=== PATIENT | female | born 2000 | race African-American/Black ===

== ENCOUNTER 2020-07-28 11:16 | Emergency (ER) | payer OTHER ==
[~2020-07-28] VITALS: Ht 165.1 cm; Wt 68.2 kg
[2020-07-28] MEDS ORDERED: LIDOCAINE/PF 1% 2 ML VIAL IM ONE (11:45)
[2020-07-28] MEDS ORDERED: AZITHROMYCIN 500 MG TABLET PO ONE (11:45)
[2020-07-28] MEDS ORDERED: CefTRIAXone SODIUM 1 GM/VIAL IM ONE (11:45)
[2020-07-28 11:49] VITALS: BP 120/60
== END 2020-07-28 12:30 | disposition home or self-care (01) ==
LOC: EMS 11:19
DX: A64 Unspecified sexually transmitted disease (principal)
CPT/HCPCS: 87491; 87591; 96372; 99283; A9575; J0696; J3490

== ENCOUNTER 2020-11-20 12:03 | Emergency (ER) | payer OTHER ==
[~2020-11-20] VITALS: Ht 165.1 cm; Wt 62.0 kg
[2020-11-20 12:04] VITALS: BP 108/56
== END 2020-11-20 13:05 | disposition left against medical advice (07) ==
LOC: EMS 12:19
DX: A64 Unspecified sexually transmitted disease (principal); Z53.21 Procedure and treatment not carried out due to patient leaving prior to being seen by health care provider

== ENCOUNTER 2023-03-12 10:57 | Emergency (ER) | payer OTHER ==
[~2023-03-12] VITALS: Ht 165.1 cm; Wt 61.4 kg
[2023-03-12 11:00] VITALS: TEMP 98.6
[2023-03-12 11:38] LABS: APPEARANCE,URINE CLEAR (CLEAR); BILIRUBIN,URINE NEGATIVE (NEGATIVE); COLOR,URINE LIGHT YELLOW (YELLOW); GLUCOSE, URINE (UA) NEGATIVE (NEGATIVE); KETONES,URINE NEGATIVE (NEGATIVE); LEUKOCYTE ESTERASE ,URINE NEGATIVE (NEGATIVE); NITRATE,URINE NEGATIVE (NEGATIVE); OCCULT BLOOD,URINE NEGATIVE (NEGATIVE); PH,URINE 5.5 (5.0-8.0); PROTEIN,URINE NEGATIVE (NEGATIVE); SPECIFIC GRAVITIY, URINE 1.029 (1.003-1.030); UROBILINOGEN,URINE <=1.0 mg/dL (<=1.0)
[2023-03-12] MEDS ORDERED: AZITHROMYCIN 500 MG TABLET PO ONE (13:30)
[2023-03-12] MEDS ORDERED: CefTRIAXone SODIUM 1 GM/VIAL IM ONE ×2 (13:30→13:45)
[2023-03-12] MEDS ORDERED: LIDOCAINE/PF 1% 2 ML VIAL IM ONE (13:45)
[2023-03-12 13:54] VITALS: BP 102/66; PULSE 65; RESP 16
== END 2023-03-12 13:55 | disposition home or self-care (01) ==
LOC: EMS 11:23
DX: Z20.2 Contact with and (suspected) exposure to infections with a predominantly sexual mode of transmission (principal)
CPT/HCPCS: 99283; 81003; 96372; J0696; J3490; Q9967